=== PATIENT | male | born 1945 | race Caucasian/White ===

== ENCOUNTER 2022-06-19 09:16 | Day surgery (SDC) | payer MEDICARE, OTHER ==
[~2022-06-19] VITALS: Ht 175.3 cm; Wt 95.3 kg
[~2022-06-19 09:16] MED LIST: BAYER ASPIRIN E81 MG PO; BENADRYL 25MG C25 MG PO; LORATADINE10 M1 PO; SIMVASTATIN80 MG PO
[2022-06-19] MEDS ORDERED: PERCOCET 5/321 COMBO PO (11:26)
[2022-06-19 12:49] VITALS: BP 166/61
== END 2022-06-19 12:30 | disposition home or self-care (01) ==
LOC: ENDO 09:16 → ORM 11:30 → ENDO 11:30
PROVIDERS: ATTEND Surgery
PROC: 0H89XZZ Division of Perineum Skin, External Approach (ICD-10-PCS; principal; 2022-06-19)
DX: K60.3 Anal fistula (principal); Z86.73 Personal history of transient ischemic attack (TIA), and cerebral infarction without residual deficits
CPT/HCPCS: C9290; J0131

== ENCOUNTER 2024-02-24 09:59 | Emergency (ER) | payer MEDICARE, OTHER ==
[2024-02-24] VITALS (15 sets, daily range): BP systolic 122–157; BP diastolic 44–66
[~2024-02-24] VITALS: Ht 175.3 cm; Wt 79.4 kg
[~2024-02-24 09:59] MED LIST changes: +PERCOCET 5/321 COMBO PO
[2024-02-24 10:50] LABS: BASO% 0.8 % (0-3); EOS% 6.5 % (0-8); HEMATOCRIT 33.9 % (39.0-50.0); HEMOGLOBIN 11.3 g/dl (14.0-18.0); IMMATURE GRANULOCYTES 0.4 % (0.0-5.0); LYMPH% 27.9 % (15-41); MEAN CELL VOLUME 95.5 fL CALC (80.0-100.0); MEAN CORPUSCULAR HGB 31.8 pG CALC (26.0-32.0); MEAN CORPUSCULAR HGB CONC 33.3 g/dL CAL (32.0-36.0); NEUT# 1.22 thou/uL (1.82-7.42); NEUT% 49.4 % (42-76); RED BLOOD COUNT 3.55 mill/uL (4.70-6.10)
[2024-02-24 11:06] LABS: ALBUMIN 3.8 g/dL (3.2-5.0); ALKALINE PHOSPHATASE 68 u/l (38-126); ANION GAP 8 (6-22 (CALC)); BUN 9 mg/dL (8-23); BUN/CREATININE RATIO 8 (12-20 (CALC)); CARBON DIOXIDE 27 mmol/l (22-30); CHLORIDE 103 mmol/l (95-108); CREATININE 1.2 mg/dL (0.7-1.3); ESTIMATED GFR 62 ML/MIN (>=90 (CALC)); POTASSIUM 4.1 mmol/l (3.5-5.1); SGOT/AST 38 u/l (19-48); SODIUM 134 mmol/l (137-146); TOTAL PROTEIN 6.9 g/dL (6.3-8.2)
== END 2024-02-24 13:26 | disposition home or self-care (01) ==
LOC: ED 09:59
PROVIDERS: Family Medicine
DX: R60.0 Localized edema (principal); I25.10 Atherosclerotic heart disease of native coronary artery without angina pectoris; E78.5 Hyperlipidemia, unspecified

== ENCOUNTER 2024-10-01 10:00 | Emergency (ER) | payer MEDICARE, OTHER ==
[~2024-10-01] VITALS: Ht 175.3 cm; Wt 98.0 kg
[2024-10-01] VITALS (58 sets, daily range): BP systolic 118–189; BP diastolic 43–148
[2024-10-01] MEDS ORDERED: ASPIRIN 81 MG/TAB PO ONE (10:20)
[2024-10-01] MEDS ORDERED: NITROGLYCERIN 0.4 MG/TAB SL ONE (10:20)
[2024-10-01 10:34] LABS: BASO% 0.5 % (0-3); EOS% 4.2 % (0-8); HEMOGLOBIN 12.5 g/dl (14.0-18.0); LYMPH% 28.7 % (15-41); MEAN CELL VOLUME 94.7 fL CALC (80.0-100.0); MEAN CORPUSCULAR HGB 32.9 pG CALC (26.0-32.0); MEAN CORPUSCULAR HGB CONC 34.7 g/dL CAL (32.0-36.0); MONO% 7.6 % (2-13); NEUT# 2.24 thou/uL (1.82-7.42); RED BLOOD COUNT 3.8 mill/uL (4.70-6.10); RED CELL DISTRI WIDTH 12.3 % (11.5-15.5)
[2024-10-01 10:45] LABS: ACT PARTIAL THROMBO TIME 28.2 SECONDS (20.0-32.5); D-DIMER 0.46 mg/L (0.19-0.60); INTERNATIONAL NORMALIZED RATIO 1.2 RATIO (0.7-1.3)
[2024-10-01 10:46] LABS: ALBUMIN 4.2 g/dL (3.2-5.0); BILIRUBIN, TOTAL 1.5 mg/dL (0.2-1.3); CREATININE 1.1 mg/dL (0.7-1.3); TOTAL PROTEIN 7.5 g/dL (6.3-8.2)
[2024-10-01 10:52] LABS: PROTHROMBIN TIME 12.3 SECONDS (9.0-12.5)
[2024-10-01] MEDS ORDERED: VITAMIN B-1100 M1 PO (10:56)
[2024-10-01] MEDS ORDERED: Heparin SODIUM (Porcine) 500 ML IV ONE (14:00)
[2024-10-01] MEDS ORDERED: Heparin SODIUM (Porcine) 5,000 UNITS/ML SDV IV ONE (14:00)
== END 2024-10-01 15:03 ==
LOC: ED 10:00
PROVIDERS: Family Medicine
DX: I25.110 Atherosclerotic heart disease of native coronary artery with unstable angina pectoris (principal); E78.00 Pure hypercholesterolemia, unspecified; Z79.82 Long term (current) use of aspirin; Z87.891 Personal history of nicotine dependence; Z86.73 Personal history of transient ischemic attack (TIA), and cerebral infarction without residual deficits
CPT/HCPCS: J1644